=== PATIENT | female | born 1960 | race African-American/Black ===

== ENCOUNTER 2017-02-02 22:52 | Emergency (ER) | payer BC ==
[2017-02-02 23:16] VITALS: BMI 29.2
[2017-02-02 23:22] VITALS: TEMP 97.9
[2017-02-02] MEDS ORDERED: ASPIRIN 81 MG CHEWABLE TABLETS PO ONE (23:28)
--- NOTE | 2017-02-02 23:35 | PDOC ---
Attending Attestation - Resident Resident Name: TimothyrlAkbar - ED Attending Attestation I have performed the following: I have examined & evaluated the patient, The case was reviewed & discussed with the resident, I agree w/resident's findings & plan, Exceptions are as noted - HPI HPI: 02/03/17 00:27 56y F hx of htn, presents with 'feeling strange', alitlte bit nauseus, when she woke up around 10:30pm. The pt denies any headache, chest pain, palpitations, sob, cough, lightheadedness, n/v, diaprehosis, leg swelling, orthopnea. Pt notes the last time she felt this way, in march, she was admitted and had a cath, that was negative. pt states she is fairly active and has never had any exertional sypmtoms. Pt currently feels well and is asypmtomatic. Patient also endorses polyuria starting today without any dysuria. GENERAL: The patient is awake, alert, and fully oriented, Nontoxic - in no acute distress. HEAD: Normocephalic, atraumatic. EYES: extraocular movements intact, sclera anicteric, conjunctiva clear. ENT: Normal voice, Moist mucous membranes. NECK: Normal range of motion, supple LUNGS: Breath sounds equal, clear to auscultation bilaterally. No wheezes, no rhonchi, no rales. HEART: Regular rate and rhythm, normal S1 and S2 without murmur, rub or gallop. ABDOMEN: Soft, nontender, normoactive bowel sounds. No guarding, no rebound. . No CVA tenderness EXTREMITIES: Normal range of motion, no edema. No clubbing or cyanosis. No cords, erythema, or tenderness. NEUROLOGICAL: No facial assymetry, Normal speech, PSYCH: Normal mood, normal affect. SKIN: Warm, Dry, normal turgor, Although highly atypical consider possible ACS Will obtain troponin 2 the patient was given aspirin We'll obtain blood work to rule out anemia, metabolic derangements Will obtain UA to rule out UTI Will reassess 02/03/17 02:57 - Physicial Exam PE: 02/03/17 16:19 see above - Medical Decision Making 02/03/17 16:19 see above Heart Score/ECG Review - ECG Impressions Comment:: 02/03/17 02:53 Twelve-lead EKG was performed and reviewed by me. There is normal sinus rhythm with a normal rate. Rate of 71 The axis is normal. Incomplete right bundle-branch block There are no ST or T wave abnormalities.
[2017-02-02 23:50] LABS: BASOPHIL 2.5 % (0-2.0); EOSINOPHIL 2.2 % (0-4.5); MCH 27.3 pg (25.7-33.7); MCHC 32.8 g/dl (32.0-36.0); MEAN CELL VOLUME 83.1 fl (80-96); MEAN PLT VOLUME 9.3 fl (7.5-11.1); PLATELET COUNT 231 K/MM3 (134-434); RDW 13.4 % (11.6-15.6); WHITE BLOOD COUNT 3.5 K/mm3 (4.0-10.0)
[2017-02-02] MEDS ORDERED: ASPIRIN 81 MG CHEWABLE TABLETS ONE (23:51)
--- NOTE | 2017-02-02 23:52 | PDOC ---
History of Present Illness - General Chief Complaint: Blood Pressure Problem Stated Complaint: DIFFICULT BREATHING Time Seen by Provider: 02/02/17 23:12 History Source: Patient Exam Limitations: No Limitations - History of Present Illness Initial Comments: 02/02/17 23:44 Patient is a 56F with history of a positive trop with acute EKG changes and a negative cath (04/01) and HTN here today complaining of not feeling right. She denies chest pain, shortness of breath, abdominal pain, dizziness, weakness and lethargy. She had the same complaint during the above mentioned visit. She denies fevers, chills, nausea and vomiting. She states that her pressures were up despite not measuring her blood pressure. She reports taking her blood pressure medication regularly. Past History - Past Medical History Allergies/Adverse Reactions: Allergies Allergy/AdvReac Type Severity Reaction Status Date / Time No Known Drug Allergies Allergy Verified 02/02/17 23:09 Home Medications: Ambulatory Orders Amlodipine Besylate [Norvasc -] 5 mg PO DAILY 02/02/17 Valsartan [Diovan] 160 mg PO DAILY 02/02/17 Anemia: No Asthma: No Cancer: No Cardiac Disorders: No CVA: No COPD: No CHF: No Dementia: No Diabetes: No GI Disorders: No Disorders: No HTN: Yes Hypercholesterolemia: No Liver Disease: No Seizures: No Thyroid Disease: No - Surgical History Abdominal Surgery: No Appendectomy: No Cardiac Surgery: No Cholecystectomy: No Lung Surgery: No Neurologic Surgery: No Orthopedic Surgery: Yes (TIBIAL SX) - Psycho/Social/Smoking Cessation Hx Anxiety: Yes Suicidal Ideation: No Smoking Status: No Smoking History: Never smoked Have you smoked in the past 12 months: No Number of Cigarettes Smoked Daily: 0 If you are a former smoker, when did you quit?: 30 YRS AGO Information on smoking cessation initiated: No Hx Alcohol Use: No Drug/Substance Use Hx: No Substance Use Type: None Hx Substance Use Treatment: No Cardiac Specific PMH - Complaint Specific PMHX Angina: No Cardiac Arrhythmia: No Pacemaker: No Review of Systems - Review of Systems Comments:: 02/02/17 23:52 GENERAL/CONSTITUTIONAL: No fever or chills. No weakness. HEAD, EYES, EARS, NOSE AND THROAT: No change in vision. No ear pain or discharge. No sore throat. CARDIOVASCULAR: No chest pain or shortness of breath RESPIRATORY: No cough, wheezing, or hemoptysis. GASTROINTESTINAL: No nausea, vomiting, diarrhea or constipation. GENITOURINARY: No dysuria, frequency, or change in urination. SKIN: No rash NEUROLOGIC: No headache, vertigo, loss of consciousness, or change in strength/ sensation. ALLERGIC/IMMUNOLOGIC: No hives or skin allergy. *Physical Exam - Vital Signs Last Vital Signs Temp Pulse Resp BP Pulse Ox 97.9 F 61 16 144/81 100 02/02/17 23:10 02/03/17 05:54 02/03/17 05:54 02/03/17 05:54 02/03/17 05:54 - Physical Exam Comments: 02/02/17 23:53 GENERAL: Awake, alert, and fully oriented, in no acute distress HEAD: No signs of trauma, normocephalic, atraumatic EYES: PERRLA, EOMI, sclera anicteric, conjunctiva clear ENT: Auricles normal inspection, hearing grossly normal, nares patent, oropharynx clear without exudates. Moist mucosa NECK: Normal ROM, supple, no lymphadenopathy, JVD, or masses LUNGS: No distress, speaks full sentences, clear to auscultation bilaterally HEART: Regular rate and rhythm, normal S1 and S2, no murmurs, rubs or gallops, peripheral pulses normal and equal bilaterally. ABDOMEN: Soft, nontender, normoactive bowel sounds. No guarding, no rebound. No masses EXTREMITIES: Normal inspection, Normal range of motion, no edema. No clubbing or cyanosis. NEUROLOGICAL: Cranial nerves II through XII grossly intact. Normal speech, normal gait, no focal sensorimotor deficits SKIN: Warm, Dry, normal turgor, no rashes or lesions noted. ED Treatment Course - LABORATORY CBC & Chemistry Diagram: 02/02/17 23:44 02/02/17 23:44 - ADDITIONAL ORDERS Additional order review: Laboratory Results 02/03/17 02/03/17 02/02/17 04:22 00:59 23:44 INR Sodium 140 Potassium 3.8 Chloride 102 Carbon Dioxide 31 Anion Gap 7 L BUN 10 D Creatinine 0.8 Creat Clearance w eGFR > 60 Random Glucose 96 Calcium 9.1 Magnesium 2.0 Total Bilirubin 0.5 D AST 18 D ALT 24 Alkaline Phosphatase 113 D Creatine Kinase 166 185 Creatine Kinase Index 0.6 0.6 CK-MB (CK-2) 1.089 1.239 Troponin I 0.02 < 0.02 Total Protein 7.9 Albumin 4.0 Urine Color Straw Urine Appearance Clear Urine pH 7.0 Urine Protein 2+ H Urine Glucose (UA) Negative Urine Ketones Negative Urine Blood Negative Urine Nitrite Negative Urine Bilirubin Negative Urine Urobilinogen Negative Ur Leukocyte Esterase Negative Urine RBC 1 Urine WBC 1 Ur Epithelial Cells Rare Hyaline Casts 1 Urine Mucus Rare 02/02/17 23:44 INR 1.04 Sodium Potassium Chloride Carbon Dioxide Anion Gap BUN Creatinine Creat Clearance w eGFR Random Glucose Calcium Magnesium Total Bilirubin AST ALT Alkaline Phosphatase Creatine Kinase Creatine Kinase Index CK-MB (CK-2) Troponin I Total Protein Albumin Urine Color Urine Appearance Urine pH Urine Protein Urine Glucose (UA) Urine Ketones Urine Blood Urine Nitrite Urine Bilirubin Urine Urobilinogen Ur Leukocyte Esterase Urine RBC Urine WBC Ur Epithelial Cells Hyaline Casts Urine Mucus 02/02/17 23:44 RBC 4.62 MCV 83.1 MCHC 32.8 RDW 13.4 MPV 9.3 Neutrophils % 47.0 Lymphocytes % 33.5 Monocytes % 14.8 H Eosinophils % 2.2 Basophils % 2.5 H - RADIOLOGY Radiology Studies Ordered: Category Date Time Status CHEST PA & LAT [RAD] Stat Radiology 02/03/17 01:34 Taken - Medications Given in the ED: ED Medications Discontinued Medications Generic Name Dose Route Start Last Admin Trade Name Baldoq PRN Reason Stop Dose Admin Aspirin 162 mg 02/02/17 23:28 02/02/17 23:52 Asa - PO 02/02/17 23:29 162 mg ONCE ONE Administration Medical Decision Making - Medical Decision Making 02/02/17 23:58 Patient is a 56F with history of elevated trop and acute EKG changes with an abnormal presentation in 04/01 here today with the same complaint. Patient currently reports no symptoms other than an episode of not feeling right earlier. Given prior visit, will do ACS work up. 02/03/17 06:49 CBC normal, CMP normal, Trop neg x2. Patient instructed to setup appointment with PCP today. Discharged to home with return precautions. Patient verbalized understanding. *DC/Admit/Observation/Transfer Diagnosis at time of Disposition: Blood pressure alteration - Discharge Dispostion Disposition: HOME Condition at time of disposition: Good Admit: No - Referrals Referrals: Buddy Arnold MD [Primary Care Provider] - - Patient Instructions Printed Discharge Instructions: DI for High Blood Pressure - Attestations Physician Attestion: 02/03/17 05:36 I, Dr. Akbar Hurd, attest that this document has been prepared under my direction and personally reviewed by me in its entirety. I further attest, that it accurately reflects all work, treatment, procedures and medical decision -making performed by me.
[2017-02-03 00:05] LABS: INR 1.04 (0.82-1.09); PROTHROMBIN TIME (PATIENT) 11.5 SEC (9.98-11.88)
[2017-02-03 00:59] LABS: ANION GAP 7 (8-16); CALCIUM 9.1 mg/dL (8.5-10.1); CO2 31 mmol/L (21-32); CREATININE 0.8 mg/dL (0.55-1.02); GLUCOSE,RANDOM 96 mg/dL (74-106); SGOT/AST 18 U/L (15-37); SGPT/ALT 24 U/L (12-78)
[2017-02-03 01:04] LABS: ALK PHOS 113 U/L (45-117); BILIRUBIN,TOTAL 0.5 mg/dL (0.2-1.0); CPK 185 IU/L (26-192); TOT PROT 7.9 g/dl (6.4-8.2); TROPONIN I < 0.02 ng/ml (0.00-0.05)
[2017-02-03 01:06] LABS: URINE APPEARANCE CLEAR; URINE BILIRUBIN NEGATIVE (NEGATIVE); URINE BLOOD NEGATIVE (NEGATIVE); URINE COLOR STRAW; URINE GLUCOSE (UA) NEGATIVE (NEGATIVE); URINE KETONE NEGATIVE (NEGATIVE); URINE LEUK ESTERASE NEGATIVE (NEGATIVE); URINE NITRITE NEGATIVE (NEGATIVE); URINE UROBILINOGEN NEGATIVE mg/dL (0.2-1.0)
[2017-02-03 01:18] LABS: URINE PROTEIN 2+ (NEGATIVE)
[2017-02-03 01:33] LABS: URINE HYALINE CAST 1 /lpf; URINE MUCUS RARE; URINE RBC 1 /hpf (0-3); URINE WBC 1 /hpf (3-5)
[2017-02-03 05:03] LABS: TROPONIN I 0.02 ng/ml (0.00-0.05)
[2017-02-03 05:55] VITALS: BP 144/81; PULSE 61
--- NOTE | 2017-02-03 12:50 | EKG ---
Test Reason : Blood Pressure : / mmHG Vent. Rate : 071 BPM Atrial Rate : 071 BPM P-R Int : 200 ms QRS Dur : 116 ms QT Int : 394 ms P-R-T Axes : 056 -01 063 degrees QTc Int : 428 ms NORMAL SINUS RHYTHM INCOMPLETE RIGHT BUNDLE BRANCH BLOCK BORDERLINE ECG WHEN COMPARED WITH ECG OF 05-APR-2016 07:46, INCOMPLETE RIGHT BUNDLE BRANCH BLOCK IS NOW PRESENT Confirmed by KRISTIE RIVERA, EDMOND ([id number]) on 02/03/2017 12:49:49 PM Referred By: Confirmed By:EDMOND FLOWERS MD
== END 2017-02-03 05:56 | disposition home or self-care (01) ==
LOC: JER 22:52
DX: I10 Essential (primary) hypertension (principal)
CPT/HCPCS: 36415; 71020-TC; 80053; 81003; 81015; 82553; 83735; 84484; 85025; 85610; 93005; 93010; 99282-25

== ENCOUNTER 2018-05-31 16:20 | Emergency (ER) | payer BC ==
[2018-05-31 16:33] VITALS: BP 125/48; PULSE 65; TEMP 98.6; BMI 29.3
--- NOTE | 2018-05-31 16:51 | PDOC ---
History of Present Illness - General Chief Complaint: Wound Stated Complaint: FOOT PAIN (INFECTION) Time Seen by Provider: 05/31/18 16:51 - History of Present Illness Initial Comments: 05/31/18 16:52 Ms. Zhang is a 57 yo female w/ pmh of HTN and HLD who presents for evaluation of left 5th toe pain. Patient reports she got a bunyon shaved down approximately 1 year ago and that her wound never fully healed. She has since had pain at site as well as draining of fluid/pus. 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 She denies any other symptoms at this time. The patient denies chest pain, shortness of breath, headache and dizziness. Denies fever, chills, nausea, vomit, diarrhea and constipation. Denies dysuria, frequency, urgency and hematuria. Past History - Past Medical History Allergies/Adverse Reactions: Allergies Allergy/AdvReac Type Severity Reaction Status Date / Time No Known Drug Allergies Allergy Verified 05/31/18 16:28 Home Medications: Ambulatory Orders Amlodipine Besylate [Norvasc -] 5 mg PO DAILY 02/02/17 Valsartan [Diovan] 160 mg PO DAILY 02/02/17 Cephalexin [Keflex] 500 mg PO QID #28 capsule 05/31/18 Sulfamethoxazole/Trimethoprim [Bactrim Ds -] 1 tab PO BID #14 tablet 05/31/18 Anemia: No Asthma: No Cancer: No Cardiac Disorders: No CVA: No COPD: No CHF: No Dementia: No Diabetes: No GI Disorders: No Disorders: No HTN: Yes Hypercholesterolemia: No Liver Disease: No Seizures: No Thyroid Disease: No - Surgical History Abdominal Surgery: No Appendectomy: No Cardiac Surgery: No Cholecystectomy: No Lung Surgery: No Neurologic Surgery: No Orthopedic Surgery: Yes (TIBIAL SX) - Suicide/Smoking/Psychosocial Hx Smoking Status: No Smoking History: Never smoked Have you smoked in the past 12 months: No Number of Cigarettes Smoked Daily: 0 If you are a former smoker, when did you quit?: 30 YRS AGO Hx Alcohol Use: No Drug/Substance Use Hx: No Substance Use Type: None Hx Substance Use Treatment: No Review of Systems - Review of Systems Comments:: 05/31/18 16:52 GENERAL/CONSTITUTIONAL: No fever or chills. No weakness. HEAD, EYES, EARS, NOSE AND THROAT: No change in vision. No ear pain or discharge. No sore throat. CARDIOVASCULAR: No chest pain or shortness of breath RESPIRATORY: No cough, wheezing, or hemoptysis. GASTROINTESTINAL: No nausea, vomiting, diarrhea or constipation. GENITOURINARY: No dysuria, frequency, or change in urination. MUSCULOSKELETAL: +Left 5th toe pain as described. No joint or muscle swelling or pain. No neck or back pain. SKIN: No rash NEUROLOGIC: No headache, vertigo, loss of consciousness, or change in strength/ sensation. ENDOCRINE: No increased thirst. No abnormal weight change HEMATOLOGIC/LYMPHATIC: No anemia, easy bleeding, or history of blood clots. ALLERGIC/IMMUNOLOGIC: No hives or skin allergy. *Physical Exam - Vital Signs Last Vital Signs Temp Pulse Resp BP Pulse Ox 98.6 F 65 19 125/48 L 100 05/31/18 16:28 05/31/18 16:28 05/31/18 16:28 05/31/18 16:28 05/31/18 16:28 - Physical Exam Comments: 05/31/18 16:53 GENERAL: Awake, alert, and fully oriented, in no acute distress HEAD: No signs of trauma, normocephalic, atraumatic EYES: PERRLA, EOMI, sclera anicteric, conjunctiva clear ENT: Auricles normal inspection, hearing grossly normal, nares patent, oropharynx clear without exudates. Moist mucosa NECK: Normal ROM, supple, no lymphadenopathy, JVD, or masses LUNGS: No distress, speaks full sentences, clear to auscultation bilaterally HEART: Regular rate and rhythm, normal S1 and S2, no murmurs, rubs or gallops, peripheral pulses normal and equal bilaterally. ABDOMEN: Soft, nontender, normoactive bowel sounds. No guarding, no rebound. No masses EXTREMITIES: +Non-healing bunyon lesion c/w history noted to 5th DIP on LLE. Otherwise normal inspection, normal range of motion, no edema. No clubbing or cyanosis. NEUROLOGICAL: Cranial nerves II through XII grossly intact. Normal speech, normal gait, no focal sensorimotor deficits SKIN: Warm, Dry, normal turgor, no rashes or lesions noted. Moderate Sedation - Procedure Monitoring Vital Signs: Procedure Monitoring Vital Signs Temperature 98.6 F 05/31/18 16:28 Pulse Rate 65 05/31/18 16:28 Respiratory Rate 19 05/31/18 16:28 Blood Pressure 125/48 L 05/31/18 16:28 O2 Sat by Pulse Oximetry (%) 100 05/31/18 16:28 ED Treatment Course - LABORATORY CBC & Chemistry Diagram: 05/31/18 15:09 05/31/18 18:00 Medical Decision Making - Medical Decision Making 05/31/18 18:22 Ms. Zhang is a 57 yo female w/ pmh as described who presents for symptoms concerning for soft tissue infection vs. osteo vs. chronic wound. Evaluation started with infectious labs, blood cultures, and XR. 05/31/18 18:49 Patient labs grossly wnl as below. Patient currently pending XR read. Patient signed out to Dr. Nichols for further evaluation. Laboratory Results - last 24 hr 05/31/18 05/31/18 05/31/18 15:09 15:09 18:00 WBC 4.2 RBC 4.60 Hgb 12.7 Hct 38.3 MCV 83.3 MCH 27.6 MCHC 33.2 RDW 12.7 Plt Count 243 MPV 9.1 Absolute Neuts (auto) 2.2 Neutrophils % 52.1 Lymphocytes % 30.3 Monocytes % 13.5 H Eosinophils % 1.8 Basophils % 2.3 H Nucleated RBC % 0 Sodium Cancelled 138 Potassium Cancelled 3.9 Chloride Cancelled 104 Carbon Dioxide Cancelled 26 Anion Gap Cancelled 8 BUN Cancelled 15 Creatinine Cancelled 0.8 Creat Clearance w eGFR Cancelled > 60 Random Glucose Cancelled 94 Calcium Cancelled 9.1 Total Bilirubin Cancelled 0.4 AST Cancelled 23 ALT Cancelled 22 Alkaline Phosphatase Cancelled 79 Total Protein Cancelled 7.4 Albumin Cancelled 3.6 *DC/Admit/Observation/Transfer Diagnosis at time of Disposition: Foot pain, left - Prescriptions Prescriptions: Cephalexin [Keflex] 500 mg PO QID #28 capsule Sulfamethoxazole/Trimethoprim [Bactrim Ds -] 1 tab PO BID #14 tablet - Referrals Referrals: Buddy Arnold MD [Primary Care Provider] - - Patient Instructions Printed Discharge Instructions: DI for Wound Infection Additional Instructions: You were evaluated today in the ER for your foot infection. We evaluated you with Xray and labs. We started you on antibiotics and recommended you follow-up on Saturday with your restaurant maintenance technician. A proscription for antibiotics were sent to your pharmacy; please take all medications as proscribed. Return to ER if any fever, chills, increase in pain, difficulty being seen by restaurant maintenance technician, or other concerning symptoms. - Post Discharge Activity
--- NOTE | 2018-05-31 17:03 | PDOC ---
Attending Attestation - HPI HPI: 05/31/18 17:21 The patient is a 57 year old female, with a significant PMH of hypertension, hyperlipidemia, who presents to the emergency department with left 5th toe pain. The patient reports she had a bunion removed approx 1 year ago and has had blood and pus draining from the area intermittently since. The patient denies any recent fever, chills, nausea, vomit, diarrhea and constipation. The patient denies chest pain, shortness of breath, headache and dizziness. Denies dysuria, frequency, urgency and hematuria. Allergies: NKA Documentation prepared by Ildefosno Hernandez, acting as medical insurance verifier for Anita Edmond MD. <Ildefonso Hernandez - Last Filed: 05/31/18 17:21> - Resident Resident Name: Edouard Cooper - ED Attending Attestation I have performed the following: I have examined & evaluated the patient, The case was reviewed & discussed with the resident, I agree w/resident's findings & plan, Exceptions are as noted - Physicial Exam PE: GENERAL: Awake, alert, and fully oriented, in no acute distress HEAD: No signs of trauma EYES: PERRLA, EOMI, sclera anicteric, conjunctiva clear ENT: Auricles normal inspection, hearing grossly normal, nares patent, oropharynx clear without exudates. Moist mucosa NECK: Normal ROM, supple, no lymphadenopathy, JVD, or masses LUNGS: Breath sounds equal, clear to auscultation bilaterally. No wheezes, and no crackles HEART: Regular rate and rhythm, normal S1 and S2, no murmurs, rubs or gallops ABDOMEN: Soft, nontender, normoactive bowel sounds. No guarding, no rebound. No masses EXTREMITIES: L 5th toe with moderate nonpitting edema, tenderness to the lateral portion of the toe. +Hyperpigmented calloused skin, no active drainage. +Tenderness. No erythema. Remainder of extremities with normal range of motion, no edema. No clubbing or cyanosis. No cords, erythema, or tenderness NEUROLOGICAL: Cranial nerves II through XII grossly intact. Normal speech, normal gait SKIN: Warm, Dry, normal turgor, no rashes or lesions noted. - Medical Decision Making The toe is not cellulitic in appearance and there is no drainage at present. However, there is devitalized skin in the area where there was previous drainage. This will need to be debrided by a pharmacists. Will await XR results to determine if we admit or not. Pt has a pharmacists and can f/u this week. <Anita Edmond - Last Filed: 06/01/18 07:43>
[2018-05-31 17:36] LABS: BASO % 2.3 % (0-2.0); EOS % 1.8 % (0-4.5); HEMATOCRIT 38.3 % (32.4-45.2); HEMOGLOBIN 12.7 GM/dL (10.7-15.3); LYMPH % 30.3 % (8-40); MCH 27.6 pg (25.7-33.7); MCHC 33.2 g/dl (32.0-36.0); MEAN CELL VOLUME 83.3 fl (80-96); MEAN PLT VOLUME 9.1 fl (7.5-11.1); MONO % 13.5 % (3.8-10.2); NEUT % 52.1 % (42.8-82.8); PLATELET COUNT 243 K/MM3 (134-434); RDW 12.7 % (11.6-15.6); WHITE BLOOD COUNT 4.2 K/mm3 (4.0-10.0)
[2018-05-31 18:48] LABS: ALBUMIN 3.6 g/dl (3.4-5.0); ALK PHOS 79 U/L (45-117); ANION GAP 8 MMOL/L (8-16); BILIRUBIN,TOTAL 0.4 mg/dL (0.2-1); BLOOD UREA NITROGEN 15 mg/dL (7-18); CALCIUM 9.1 mg/dL (8.5-10.1); CHLORIDE 104 mmol/L (98-107); CO2 26 mmol/L (21-32); CREATININE 0.8 mg/dL (0.55-1.3); GLUCOSE,RANDOM 94 mg/dL (74-106); POTASSIUM 3.9 mmol/L (3.5-5.1); SGOT/AST 23 U/L (15-37); SGPT/ALT 22 U/L (13-61); SODIUM 138 mmol/L (136-145); TOT PROT 7.4 g/dl (6.4-8.2)
[2018-05-31] MEDS ORDERED: CEFTRIAXONE 1,000 MG in DEXTROSE 5%-WATER - 50 ML IVPB ONE (19:25)
--- NOTE | 2018-05-31 19:25 | PDOC ---
*Physical Exam - Vital Signs Last Vital Signs Temp Pulse Resp BP Pulse Ox 98.6 F 65 19 125/48 L 100 05/31/18 16:28 05/31/18 16:28 05/31/18 16:28 05/31/18 16:28 05/31/18 16:28 ED Treatment Course - LABORATORY CBC & Chemistry Diagram: 05/31/18 15:09 05/31/18 18:00 - ADDITIONAL ORDERS Additional order review: Laboratory Results 05/31/18 05/31/18 05/31/18 18:00 18:00 15:09 Sodium 138 Cancelled Potassium 3.9 Cancelled Chloride 104 Cancelled Carbon Dioxide 26 Cancelled Anion Gap 8 Cancelled BUN 15 Cancelled Creatinine 0.8 Cancelled Creat Clearance w eGFR > 60 Cancelled Random Glucose 94 Cancelled Calcium 9.1 Cancelled Total Bilirubin 0.4 Cancelled AST 23 Cancelled ALT 22 Cancelled Alkaline Phosphatase 79 Cancelled C-Reactive Protein < 0.3 Total Protein 7.4 Cancelled Albumin 3.6 Cancelled 05/31/18 15:09 RBC 4.60 MCV 83.3 MCHC 33.2 RDW 12.7 MPV 9.1 Neutrophils % 52.1 Lymphocytes % 30.3 Monocytes % 13.5 H Eosinophils % 1.8 Basophils % 2.3 H Medical Decision Making - Medical Decision Making I have assumed care of the patient from Dr. Cooper, who has discussed the clinical presentation, work-up, and ED course thus far. I have reviewed the patients medical record and ED course and agree with all aspects of care thus far. ESR & CRP neg CXR w/ evidence of inflammatory process and likely not infectious bone-pathology Plan for D/C w/ PO abx which were sent to the pharmacy Discharge instructions and return precautions given Patient in agreement and verbalized understanding Dispo: home 05/31/18 19:45 *DC/Admit/Observation/Transfer Diagnosis at time of Disposition: Foot pain, left - Discharge Dispostion Disposition: HOME Condition at time of disposition: Stable Decision to Admit order: No - Prescriptions Prescriptions: Cephalexin [Keflex] 500 mg PO QID #28 capsule Sulfamethoxazole/Trimethoprim [Bactrim Ds -] 1 tab PO BID #14 tablet - Referrals Referrals: Buddy Arnold MD [Primary Care Provider] - Kade Walters MD [Staff Physician] - - Patient Instructions Printed Discharge Instructions: DI for Wound Infection Additional Instructions: You were evaluated today in the ER for your foot infection. We evaluated you with Xray and labs. We started you on antibiotics and recommended you follow-up on Saturday with your vice president biostatistics. A proscription for antibiotics were sent to your pharmacy; please take all medications as proscribed. Return to ER if any fever, chills, increase in pain, difficulty being seen by vice president biostatistics, or other concerning symptoms. - Post Discharge Activity
--- NOTE | 2018-05-31 19:26 | PDOC ---
*Physical Exam - Vital Signs Last Vital Signs Temp Pulse Resp BP Pulse Ox 98.6 F 65 19 125/48 L 100 05/31/18 16:28 05/31/18 16:28 05/31/18 16:28 05/31/18 16:28 05/31/18 16:28 ED Treatment Course - LABORATORY CBC & Chemistry Diagram: 05/31/18 15:09 05/31/18 18:00 - ADDITIONAL ORDERS Additional order review: Laboratory Results 05/31/18 05/31/18 05/31/18 18:00 18:00 15:09 Sodium 138 Cancelled Potassium 3.9 Cancelled Chloride 104 Cancelled Carbon Dioxide 26 Cancelled Anion Gap 8 Cancelled BUN 15 Cancelled Creatinine 0.8 Cancelled Creat Clearance w eGFR > 60 Cancelled Random Glucose 94 Cancelled Calcium 9.1 Cancelled Total Bilirubin 0.4 Cancelled AST 23 Cancelled ALT 22 Cancelled Alkaline Phosphatase 79 Cancelled C-Reactive Protein < 0.3 Total Protein 7.4 Cancelled Albumin 3.6 Cancelled 05/31/18 15:09 RBC 4.60 MCV 83.3 MCHC 33.2 RDW 12.7 MPV 9.1 Neutrophils % 52.1 Lymphocytes % 30.3 Monocytes % 13.5 H Eosinophils % 1.8 Basophils % 2.3 H Medical Decision Making - Medical Decision Making 05/31/18 19:25 I picked up patient on signout; awaiting c-Reactive protein (which just returned normal) and sed rate -still pending. XR foot shows: Patient Name: LIZ DUNLAP Exam: 3 views left sided toes. Clinical indication:Swelling and pain to left fifth toe. Findings: There is disruption of the left fifth PIP joint with weak cuplike erosive change involving the head of the proximal phalanx and rounding of the base of the left fifth middle phalanx. The findings suggest a pencil in cup type deformity as seen classically in psoriatic arthritis. Other inflammatory arthritides should be considered as well. The remainder of the joints are within normal limits. The remainder the visualized bony structures are unremarkable. Impression: Destructive changes involving the left fifth PIP joint the appearance of which favors an inflammatory arthritides such as psoriatic arthritis over osteomyelitis. Clinical correlation is recommended. 05/31/18 20:22 sed rate is 12; pt will be discharged with abx for soft tissue infection. Follow with podiatry *DC/Admit/Observation/Transfer Diagnosis at time of Disposition: Foot pain, left - Discharge Dispostion Disposition: HOME Condition at time of disposition: Stable - Prescriptions Prescriptions: Cephalexin [Keflex] 500 mg PO QID #28 capsule Sulfamethoxazole/Trimethoprim [Bactrim Ds -] 1 tab PO BID #14 tablet - Referrals Referrals: Buddy Arnold MD [Primary Care Provider] - - Patient Instructions Printed Discharge Instructions: DI for Wound Infection Additional Instructions: You were evaluated today in the ER for your foot infection. We evaluated you with Xray and labs. We started you on antibiotics and recommended you follow-up on Saturday with your soap boiler. A proscription for antibiotics were sent to your pharmacy; please take all medications as proscribed. Return to ER if any fever, chills, increase in pain, difficulty being seen by soap boiler, or other concerning symptoms. - Post Discharge Activity
[2018-05-31] MEDS ORDERED: CEFTRIAXONE 1 GM/50 ML BAG ONE (19:49)
== END 2018-05-31 20:46 | disposition home or self-care (01) ==
LOC: JER 16:20
DX: M79.672 Pain in left foot (principal); I10 Essential (primary) hypertension; E78.5 Hyperlipidemia, unspecified; Z87.891 Personal history of nicotine dependence
CPT/HCPCS: 36415; 73660-TC-LT-FY; 80053; 85025; 85651; 86140; 87040; 99282-25

== ENCOUNTER 2018-12-03 16:44 | Emergency (ER) | payer OTHER ==
[2018-12-03 16:49] VITALS: TEMP 98.4; BMI 32.6
--- NOTE | 2018-12-03 17:36 | PDOC ---
History of Present Illness - General Chief Complaint: Blood Pressure Problem Stated Complaint: elevated blood pressure Time Seen by Provider: 12/03/18 17:14 - History of Present Illness Initial Comments: 12/03/18 17:36 The patient is a 57 year old female with a history of HTN, HLD who presents for evaluation of elevated blood pressure. The patient notes that she was on the bus today when she felt that her blood pressure was elevated as well as some lightheadedness prompting her presentation to the ED for further evaluation. She states that she feels her blood pressure becomes elevated when she is hungry and feels that is what caused her symptoms today. She states that she took her blood pressure medication 5mg Norvasc while on the bus prior to presentation to the ED. She states that on presentation to the ED, she is asymptomatic and feels much improved. She otherwise denies headache, vision changes, SOB, chest pain, nausea, vomiting, abdominal pain, or changes with urination or bowel movements. Past History - Past Medical History Allergies/Adverse Reactions: Allergies Allergy/AdvReac Type Severity Reaction Status Date / Time No Known Drug Allergies Allergy Verified 12/03/18 16:50 Home Medications: Ambulatory Orders Atorvastatin Ca [Lipitor] 20 mg PO DAILY 12/03/18 Triamterene/Hydrochlorothiazid [Triamterene-Hctz 37.5-25 mg Cp] 1 each PO DAILY 12/03/18 Anemia: No Asthma: No Cancer: No Cardiac Disorders: No CVA: No COPD: No CHF: No Dementia: No Diabetes: No GI Disorders: No Disorders: No HTN: Yes Hypercholesterolemia: Yes Liver Disease: No Seizures: No Thyroid Disease: No - Surgical History Abdominal Surgery: No Appendectomy: No Cardiac Surgery: No Cholecystectomy: No Lung Surgery: No Neurologic Surgery: No Orthopedic Surgery: Yes (TIBIAL SX) - Suicide/Smoking/Psychosocial Hx Smoking Status: No Smoking History: Never smoked Have you smoked in the past 12 months: No Number of Cigarettes Smoked Daily: 0 If you are a former smoker, when did you quit?: 30 YRS AGO Hx Alcohol Use: No Drug/Substance Use Hx: No Substance Use Type: None Hx Substance Use Treatment: No Review of Systems - Review of Systems Comments:: 12/03/18 17:39 Constitutional: No fevers, chills, fatigue, malaise HEENT: No Rhinorrhea, nasal congestion, visual changes Cardiovascular: No chest pain, syncope, palpitations, Respiratory: No Cough, SOB, Hemoptysis, Gastrointestinal: No Abdominal pain, Nausea, Vomiting, Constipation, Diarrhea, Melena Genitourinary: No Dysuria, Frequency, Urgency, Hesitancy, Hematuria, Flank pain Musculoskeletal: No Myalgia, arthralgia Skin: No rashes, itching, bruising, pallor Neurologic: No Headache, Dizziness, Numbness, Weakness, or Tingling Psychiatric: No Hallucinations. No SI or HI *Physical Exam - Vital Signs Last Vital Signs Temp Pulse Resp BP Pulse Ox 98.4 F 90 18 163/66 100 12/03/18 16:47 12/03/18 16:47 12/03/18 16:47 12/03/18 16:47 12/03/18 16:47 - Physical Exam Comments: 12/03/18 17:40 General Appearance: Nourished. No Apparent Distress HEENT: No Pharyngeal Erythema, Tonsillar Exudate, Tonsillar Erythema Neck: No Cervical Lymphadenopathy Respiratory/Chest: Lungs Clear, Normal Breath Sounds. No Crackles, Rales, Rhonchi, Wheezing Cardiovascular: Regular Rhythm, Regular Rate. No Murmur, Gallops, Rubs Gastrointestinal/Abdominal: Normal Bowel Sounds, Soft. No Guarding, Rebound, Tenderness Musculoskeletal: No CVA Tenderness Extremity: Normal Capillary Refill Integumentary: Normal Color, Dry, Warm Neurologic: Fully Oriented, Alert, Normal Mood/Affect, Normal Response, Medical Decision Making - Medical Decision Making 12/03/18 17:41 The patient is a 57 year old female with a history of HTN, HLD who presents for evaluation of elevated blood pressure. The patient appears clinically well on exam here in the ED and is currently asymptomatic. Given her history and physical exam, we do not believe further work up or intervention is needed at this time. The patient notes that she has schedule follow up with cardiology tomorrow. We are comfortable discharging the patient home in stable condition with close cardiology follow up. Patient made aware of impression and plan, return precautions discussed including but not limited to worsening pain or symptoms, fevers, or signs of infection, chest pain, respiratory distress, inability to tolerate oral intake, dehydration, syncope, or neurologic changes. The patient is to follow up with PMD as recommended within 1 week, follow up information provided and the patient will call for an appointment. The patient is to take medications as instructed for duration of time and continue with supportive care, avoid triggers and precipitants. Patient is safe for outpatient follow-up. *DC/Admit/Observation/Transfer Diagnosis at time of Disposition: Elevated blood pressure - Discharge Dispostion Disposition: HOME Condition at time of disposition: Stable - Referrals Referrals: Buddy Arnold MD [Primary Care Provider] - - Patient Instructions Printed Discharge Instructions: DI for High Blood Pressure Additional Instructions: 1) Please follow-up with your primary care doctor in the next 2-3 days. Please call tomorrow to schedule a follow up appointment. If you cannot follow up with your doctor within 1 week please return to the Emergency Department for any urgent issues. 2) Please keep your follow up appointment with your Seafood Team Member tomorrow to discuss further management of your blood pressure. 3) If you have any worsening of symptoms or any other concerns please return to the ER immediately. Return if worsening symptoms including fevers, headache, vomiting, visual or hearing disturbances, abdominal pain, chest pain, shortness of breath, syncope, dehydration, inability to take things by mouth/vomiting, altered mental status, or worsening concerning symptoms. 4) Please continue taking your home medications as directed. Side effects may include upset stomach, abdominal pain, vomiting, or diarrhea. Do not drink alcohol with your medications. - Post Discharge Activity Forms/Work/School Notes: Back to Work
[2018-12-03 17:52] VITALS: BP 155/81; PULSE 86
== END 2018-12-03 17:52 | disposition home or self-care (01) ==
LOC: FER 16:44
DX: I10 Essential (primary) hypertension (principal); E78.5 Hyperlipidemia, unspecified; E78.00 Pure hypercholesterolemia, unspecified
CPT/HCPCS: 99282-25

== ENCOUNTER 2019-02-18 19:21 | Emergency (ER) | payer OTHER ==
[2019-02-18 20:19] VITALS: BMI 31.4
--- NOTE | 2019-02-18 20:20 | PDOC ---
History of Present Illness - General Chief Complaint: Lightheaded Stated Complaint: HYPERTENSION History Source: Patient - History of Present Illness Initial Comments: 58 y/o/f with PMHx of HTN, HLD here for lightheadedness that occurred today at 1830. She states that she had a deli sandwich today which tasted salty to her, despite her asking the deli informatics educator to not put any salt on the sandwich. After she ate the sandwich she started to feel lightheaded and decided to come to the ER. She takes Triamterene-HCTZ 37.5mg once a day and today she took a second pill after she started to feel off. She feels better after arriving in the ED. She denies any headache, vision changes, CP, abd pain, N/V/D, cough, fever, or other symptoms. Her blood pressure at home is usually in the 120s/80s. PMHx: HTN, HLD SHx: hysterectomy - 1999 PCP: Dr. Clayton Lowry Hx: denies tobacco and alcohol use Past History - Past Medical History Allergies/Adverse Reactions: Allergies Allergy/AdvReac Type Severity Reaction Status Date / Time No Known Drug Allergies Allergy Verified 02/18/19 20:15 Home Medications: Ambulatory Orders Atorvastatin Ca [Lipitor] 20 mg PO DAILY 12/03/18 Triamterene/Hydrochlorothiazid [Triamterene-Hctz 37.5-25 mg Cp] 1 each PO DAILY 12/03/18 Anemia: No Asthma: No Cancer: No Cardiac Disorders: No CVA: No COPD: No CHF: No Dementia: No Diabetes: No GI Disorders: No Disorders: No HTN: Yes Hypercholesterolemia: Yes Liver Disease: No Seizures: No Thyroid Disease: No - Surgical History Abdominal Surgery: No Appendectomy: No Cardiac Surgery: No Cholecystectomy: No Lung Surgery: No Neurologic Surgery: No Orthopedic Surgery: Yes (TIBIAL SX) - Suicide/Smoking/Psychosocial Hx Smoking Status: No Smoking History: Never smoked Have you smoked in the past 12 months: No Number of Cigarettes Smoked Daily: 0 If you are a former smoker, when did you quit?: 30 YRS AGO Hx Alcohol Use: No Drug/Substance Use Hx: No Substance Use Type: None Hx Substance Use Treatment: No Review of Systems - Review of Systems Constitutional: No: Chills, Fever HEENTM: No: Blurred Vision, Double Vision, Nose Congestion Respiratory: No: Cough, Shortness of Breath Cardiac (ROS): Yes: Lightheadedness. No: Chest Pain ABD/GI: No: Diarrhea, Nausea, Vomiting, Abdominal cramping : No: Dysuria Musculoskeletal: No: Back Pain Integumentary: No: Rash Neurological: No: Headache, Numbness *Physical Exam - Vital Signs Last Vital Signs Temp Pulse Resp BP Pulse Ox 98.1 F 67 20 134/98 98 02/18/19 19:45 02/18/19 19:45 02/18/19 19:45 02/18/19 19:45 02/18/19 19:45 - Physical Exam General Appearance: Yes: Nourished, Appropriately Dressed HEENT: positive: EOMI. negative: Nasal Congestion Neck: positive: Supple. negative: Tender, Lymphadenopathy (R), Lymphadenopathy (L) Respiratory/Chest: positive: Normal Breath Sounds. negative: Accessory Muscle Use, Crackles, Rales, Rhonchi, Wheezing Cardiovascular: positive: Regular Rhythm, Regular Rate, S1, S2 Gastrointestinal/Abdominal: positive: Normal Bowel Sounds, Soft. negative: Tender Extremity: positive: Normal Capillary Refill. negative: Swelling Integumentary: positive: Normal Color Neurologic: positive: triage specialist II-XII NML intact, Fully Oriented, Alert, Motor Strength 5/5 Heart Score/ECG Review #1 ECG reviewed & interpreted by me at: 22:26 General ECG Interpretation: Sinus Rhythm 02/18/19 22:26 vent rate: 77bpm NH interval: 188ms QRS duration: 110ms QT/QTc: 384/434 P-R-T axes: 51 -25 54 normal sinus rhythm No acute ischemic changes ED Treatment Course - LABORATORY CBC & Chemistry Diagram: 02/18/19 21:04 02/18/19 21:04 Medical Decision Making - Medical Decision Making 02/18/19 21:10 58 y/o/f with PMHx of HTN, HLD here for lightheadedness that occurred today at 1830. Patient is on Triamterene/HCTZ 37.5mg once a day and took an extra pill at 1830 today when she started to feel off. Patient feels better after arriving in the ED. CBC, CMP, trops, EKG ordered. Patient has follow up with Dr. Arnold her PCP and a diabetes specialist. 02/18/19 22:27 Patient CBC grossly normal. CMP shows mild hypokalemia at 3.4. 40meq of Potassium ordered. Patient EKG shows normal sinus rhythm. No signs of acute ischemic changes. Patient feeling better. Will discharge home with follow up. *DC/Admit/Observation/Transfer Diagnosis at time of Disposition: Lightheadedness Hypertension Qualifiers: Hypertension type: unspecified Qualified Code(s): I10 - Essential (primary) hypertension - Discharge Dispostion Disposition: HOME Condition at time of disposition: Good - Referrals Referrals: Buddy Arnold MD [Primary Care Provider] - - Patient Instructions Printed Discharge Instructions: The DASH Diet, DI for High Blood Pressure Additional Instructions: If you have any worsening symptoms such as chest pain, shortness of breath, changes in vision, sever headache return to the ER. Follow up with you primary care doctor within the next few days. Follow up with your diabetes specialist within the next few days. - Post Discharge Activity
[2019-02-18 20:40] VITALS: TEMP 98.7
--- NOTE | 2019-02-18 21:04 | PDOC ---
Documentation entered by Heber Gregorio SCRIBE, acting as scribe for Betsy Mae DO. Betsy Mae DO: This documentation has been prepared by the Jg yung Xhesika, SCRIBE, under my direction and personally reviewed by me in its entirety. I confirm that the documentation accurately reflects all work, treatment, procedures, and medical decision making performed by me. Attending Attestation - Resident Resident Name: SharlaAdrienneamy Roman - ED Attending Attestation I have performed the following: I have examined & evaluated the patient, The case was reviewed & discussed with the resident, I agree w/resident's findings & plan, Exceptions are as noted - HPI HPI: 02/18/19 20:59 The patient is a 58 year old female with a significant PMH of HTN and HLD who presents to the emergency department for lightheadedness. The patient states she ate a salty sandwich from the [facility] at 6:30pm and shortly after she endorsed elevated blood pressure. Patient notes she usually takes 1 pill of Triamterene , however, today she took 2 after the onset of her symptoms. Patient states her baseline BP is 120/80. Pt was seen here in the ED 2 months ago for similar symptoms. Patient denies headache, vision changes, SOB, chest pain, fever, cough, nausea, vomiting, abdominal pain, or changes with urination or bowel movements. Allergies: NKDA - Physicial Exam PE: 02/18/19 21:00 GENERAL: Awake, alert, and fully oriented, in no acute distress HEAD: No signs of trauma EYES: PERRLA, EOMI, sclera anicteric, conjunctiva clear ENT: Auricles normal inspection, hearing grossly normal, nares patent, oropharynx clear without exudates. Moist mucosa NECK: Normal ROM, supple, no lymphadenopathy, JVD, or masses LUNGS: Breath sounds equal, clear to auscultation bilaterally. No wheezes, and no crackles HEART: Regular rate and rhythm, normal S1 and S2, no murmurs, rubs or gallops ABDOMEN: Soft, nontender, normoactive bowel sounds. No guarding, no rebound. No masses EXTREMITIES: Normal range of motion, no edema. No clubbing or cyanosis. No cords, erythema, or tenderness NEUROLOGICAL: Cranial nerves II through XII grossly intact. Normal speech, normal gait SKIN: Warm, Dry, normal turgor, no rashes or lesions noted. - Medical Decision Making 02/18/19 21:02 I, Dr. Betsy Mae, DO, attest that this document has been prepared under my direction and personally reviewed by me in its entirety. I further attest, that it accurately reflects all work, treatment, procedures and medical decision -making performed by me. a/p: 58yo female with hx of htn who ate a deli sandwich which tasted salty and then felt her pressure went up -felt dizzy, took an extra bp med and now feels much better -denies all symptoms -denies miranda, paresthesias, dizziness, cp.sob, no abd pain, no n/v/ -no dysuria -pt states she feels all symptoms resolved -will check basic labs and ekg -plan for most likely dc to home with pmd follow up for bp check 02/18/19 22:28 labs reviewed trop neg replaced potassium ekg nonacute pt feeling better and requesting to go home asymptomatic in the ED 02/18/19 22:29 pt stable for dc to home Heart Score/ECG Review - ECG Intrepretation Comment:: 02/18/19 22:28 sinus at 77, nl axis, nl interval, t wave flattening inferior leads and anterior leads, no acute st changes
[2019-02-18 21:24] LABS: BASO % 1.4 % (0-2.0); EOS % 0.7 % (0-4.5); HEMATOCRIT 41.8 % (32.4-45.2); HEMOGLOBIN 13.6 GM/dL (10.7-15.3); LYMPH % 12.1 % (8-40); MCH 26.8 pg (25.7-33.7); MCHC 32.4 g/dl (32.0-36.0); MEAN CELL VOLUME 82.7 fl (80-96); MEAN PLT VOLUME 8.7 fl (7.5-11.1); MONO % 8.9 % (3.8-10.2); NEUT % 76.9 % (42.8-82.8); PLATELET COUNT 295 K/MM3 (134-434); RBC 5.06 M/mm3 (3.60-5.2); RDW 13.3 % (11.6-15.6); WHITE BLOOD COUNT 6.3 K/mm3 (4.0-10.0)
[2019-02-18 21:45] LABS: ALBUMIN 4.2 g/dl (3.4-5.0); BILIRUBIN,TOTAL 0.4 mg/dL (0.2-1); CREATININE 1.1 mg/dL (0.55-1.3); POTASSIUM 3.4 mmol/L (3.5-5.1); TOT PROT 8.8 g/dl (6.4-8.2)
[2019-02-18] MEDS ORDERED: POTASSIUM CHLORIDE TABS 20 MEQ TABLET.ER (FP) PO ONE ×2 (22:01→22:36)
[2019-02-18 22:48] VITALS: BP 138/91; PULSE 86
--- NOTE | 2019-02-19 12:25 | EKG ---
Test Reason : Blood Pressure : / mmHG Vent. Rate : 077 BPM Atrial Rate : 077 BPM P-R Int : 188 ms QRS Dur : 110 ms QT Int : 384 ms P-R-T Axes : 051 -25 054 degrees QTc Int : 434 ms NORMAL SINUS RHYTHM NONSPECIFIC T WAVE ABNORMALITY ABNORMAL ECG WHEN COMPARED WITH ECG OF 02-FEB-2017 23:51, INCOMPLETE RIGHT BUNDLE BRANCH BLOCK IS NO LONGER PRESENT Confirmed by DAVE RIVERA, TISHA ([id number]) on 02/19/2019 12:24:57 PM Referred By: CORTEZ CUNHA Confirmed By:TISHA ACOSTA MD
== END 2019-02-18 22:49 | disposition home or self-care (01) ==
LOC: JER 19:21
DX: I10 Essential (primary) hypertension (principal); E87.6 Hypokalemia; E78.5 Hyperlipidemia, unspecified
CPT/HCPCS: 36415; 80053; 82550; 82553; 84484; 85025; 93005; 93010; 99283-25

== ENCOUNTER 2020-03-10 14:43 | Emergency (ER) | payer BC ==
[2020-03-10 15:05] VITALS: BP 152/86; PULSE 91; TEMP 98.5; BMI 31.1
--- NOTE | 2020-03-10 15:45 | PDOC ---
History of Present Illness - General Chief Complaint: Pain Stated Complaint: NECK PAIN Time Seen by Provider: 03/10/20 15:15 History Source: Patient Exam Limitations: No Limitations Past History - Travel History Traveled outside of the country in the last 30 days: No Close contact w/someone who was outside of country & ill: No - Medical History Allergies/Adverse Reactions: Allergies Allergy/AdvReac Type Severity Reaction Status Date / Time No Known Drug Allergies Allergy Verified 03/10/20 15:05 Home Medications: Ambulatory Orders Atorvastatin Ca [Lipitor] 20 mg PO DAILY 12/03/18 Triamterene/Hydrochlorothiazid [Triamterene-Hctz 37.5-25 mg Cp] 1 each PO DAILY 12/03/18 Methocarbamol [Robaxin -] 500 mg PO BID #14 tablet 03/10/20 Naproxen 500 mg PO BID #20 tablet 03/10/20 Anemia: No Asthma: No Cancer: No Cardiac Disorders: No CVA: No COPD: No CHF: No Dementia: No Diabetes: No GI Disorders: No Disorders: No HTN: Yes Hypercholesterolemia: Yes Liver Disease: No Seizures: No Thyroid Disease: No - Surgical History Abdominal Surgery: No Appendectomy: No Cardiac Surgery: No Cholecystectomy: No Lung Surgery: No Neurologic Surgery: No Orthopedic Surgery: Yes (TIBIAL SX) - Psycho-Social/Smoking History Smoking Status: No Smoking History: Never smoked Have you smoked in the past 12 months: No Number of Cigarettes Smoked Daily: 0 If you are a former smoker, when did you quit?: 30 YRS AGO Review of Systems - Review of Systems Able to Perform ROS?: Yes Comments:: 03/10/20 19:45 CONSTITUTIONAL: Absent: fever, chills, diaphoresis, generalized weakness, malaise, loss of appetite HEENT: Present: neck pain Absent: rhinorrhea, nasal congestion, throat pain, throat swelling, difficulty swallowing, mouth swelling, ear pain, eye pain, visual Changes CARDIOVASCULAR: Absent: chest pain, loss of consciousness, palpitations, irregular heart rate, peripheral edema RESPIRATORY: Absent: cough, shortness of breath, dyspnea with exertion, orthopnea, wheezing, stridor, hemoptysis GASTROINTESTINAL: Absent: abdominal pain, abdominal distension, nausea, vomiting, diarrhea, constipation, melena, hematochezia GENITOURINARY: Absent: dysuria, frequency, urgency, hesitancy, hematuria, flank pain, genital pain MUSCULOSKELETAL: Absent: myalgia, arthralgia, joint swelling SKIN: Absent: rash, itching, pallor HEMATOLOGIC/IMMUNOLOGIC: Absent: easy bleeding, easy bruising, lymphadenopathy, frequent infections ENDOCRINE: Absent: unexplained weight gain, unexplained weight loss, heat intolerance, cold intolerance NEUROLOGIC: Absent: headache, focal weakness or paresthesias, dizziness, unsteady gait, seizure, mental status changes, bladder or bowel incontinence PSYCHIATRIC: Absent: anxiety, depression, suicidal or homicidal ideation, hallucinations. Is the patient limited Thai proficient: No *Physical Exam - Vital Signs Last Vital Signs Temp Pulse Resp BP Pulse Ox 98.5 F 91 H 18 152/86 100 03/10/20 15:03 03/10/20 15:03 03/10/20 15:03 03/10/20 15:03 03/10/20 15:03 - Physical Exam 03/10/20 18:46 GENERAL: Well developed, well nourished. Awake and alert. No acute distress. HEENT: Normocephalic, atraumatic. PERRLA, EOMI. No conjunctival pallor. Sclera are non- icteric. Moist mucous membranes. Oropharynx is clear. NECK: Supple. Full ROM. No JVD. Carotid pulses 2+ and symmetric, without bruits. No lymphadenopathy. TTP of the b/l paraspinous muscles C5-C7. CARDIOVASCULAR: Regular rate and rhythm. No murmurs, rubs, or gallops. Distal pulses are 2+ and symmetric. PULMONARY: No evidence of respiratory distress. Lungs clear to auscultation bilaterally. No wheezing, rales or rhonchi. ABDOMINAL: Soft. Non-tender. Non-distended. No rebound or guarding. No organomegaly. Normoactive bowel sounds. MUSCULOSKELETAL Normal range of motion at all joints. No bony deformities or tenderness. No CVA tenderness. EXTREMITIES: No cyanosis. No clubbing. No edema. No calf tenderness. SKIN: Warm and dry. Normal capillary refill. No rashes. No jaundice. NEUROLOGICAL: Alert, awake, appropriate. Cranial nerves 2-12 intact. No deficits to light touch and temperature in face, upper extremities and lower extremities. No motor deficits in the in face, upper extremities and lower extremities. Normoreflexic in the upper and lower extremities. Normal speech. Toes are down-going bilaterally. Gait is normal without ataxia. PSYCHIATRIC: Cooperative. Good eye contact. Appropriate mood and affect. ED Treatment Course - LABORATORY CBC & Chemistry Diagram: 03/10/20 16:08 03/10/20 16:08 Medical Decision Making - Medical Decision Making 03/10/20 18:29 The patient is a 59 y/o F with PMH of HTN, presents to the ER with b/l neck pain. She states that it hurts more with movement. She notes that she has been feeling light headed due to the pain. She is not sure why she has neck pain. She also states that her neck has been "cracking" more than usual. Denies nausea, vomiting, headache, dizziness, fever, vomiting, A/P: Neck pain On exam pt has b/l paraspinous muscle spasm C5-C7. No midline tenderness. No meningismus, LAD. No JVD, No bruits b/l. Basic labs obtained. No abnormalities Tylenol given with relief of symptoms Wet read of x-ray shows multiple levels of arthritis and straightening; likely spasm Will treat with muscle relaxers and NSAIDS DC home with PCP follow up Return precautions given. Results were explained to the patient. Pt feels comfortable with discharge planning and will f/u with her PCP this week. All questions were answered. Discharge - Discharge Information Problems reviewed: Yes Clinical Impression/Diagnosis: Neck pain, Arthritis Condition: Stable Disposition: HOME - Admission No - Additional Discharge Information Prescriptions: Naproxen 500 mg PO BID #20 tablet Methocarbamol [Robaxin -] 500 mg PO BID #14 tablet - Follow up/Referral Referrals: Buddy Arnold MD [Primary Care Provider] - - Patient Discharge Instructions Patient Printed Discharge Instructions: DI for Neck Pain Additional Instructions: You were seen for your neck pain today. You have arthritis as seen on your x-ray. Please take the naproxen twice a day to help with the pain. You may take the Robaxin twice a day. This is a muscle relaxer. Do not drink or drive after taking this medication as it may make you drowsy. Your blood work was normal and did not show any abnormalities. You may apply heating pads to the area to help with the pain. Follow-up with your primary care tomorrow as already arranged. Return to the ER for worsening headache, chest pain, difficulty breathing or if you have any changes in your symptoms. - Post Discharge Activity Work/Back to School Note: Back to Work
[2020-03-10 16:21] LABS: BASO % 1.5 % (0-2.0); EOS % 0.4 % (0-4.5); HEMATOCRIT 39.5 % (32.4-45.2); HEMOGLOBIN 13.1 GM/dL (10.7-15.3); LYMPH % 13.1 % (8-40); MCH 27.6 pg (25.7-33.7); MEAN CELL VOLUME 83.7 fl (80-96); MEAN PLT VOLUME 9.4 fl (7.5-11.1); MONO % 7.3 % (3.8-10.2); NEUT % 77.7 % (42.8-82.8); PLATELET COUNT 220 K/MM3 (134-434); RBC 4.73 M/mm3 (3.60-5.2); RDW 12.8 % (11.6-15.6); WHITE BLOOD COUNT 5.7 K/mm3 (4.0-10.0)
[2020-03-10 16:44] LABS: ALBUMIN 4.9 g/dl (3.4-5.0); BILIRUBIN,TOTAL 0.4 mg/dL (0.2-1); BLOOD UREA NITROGEN 9.3 mg/dL (7-18); CALCIUM 9.6 mg/dL (8.5-10.1); CREATININE 0.9 mg/dL (0.55-1.3); POTASSIUM 3.2 mmol/L (3.5-5.1); TOT PROT 8.9 g/dl (6.4-8.2)
== END 2020-03-10 17:46 | disposition home or self-care (01) ==
LOC: JERFT 14:43
DX: M54.2 Cervicalgia (principal)
CPT/HCPCS: 36415; 72040-TC; 80053; 85025; 99284-25

== ENCOUNTER 2021-05-18 10:07 | Emergency (ER) | payer BC, OTHER ==
[2021-05-18 10:54] VITALS: BP 158/82; PULSE 85; TEMP 98.9; BMI 31.4
[2021-05-18] MEDS ORDERED: IBUPROFEN 600 MG TABLET (FP) PO ONE ×2 (11:47→11:59)
== END 2021-05-18 14:27 | disposition home or self-care (01) ==
LOC: JERFT 10:07
DX: S46.811A Strain of other muscles, fascia and tendons at shoulder and upper arm level, right arm, initial encounter (principal); V89.2XXA Person injured in unspecified motor-vehicle accident, traffic, initial encounter; Y92.9 Unspecified place or not applicable
CPT/HCPCS: 72040-TC; 99284-25

== ENCOUNTER 2021-08-10 17:37 | Emergency (ER) | payer OTHER, BC ==
[2021-08-10 17:59] VITALS: BP 165/97; PULSE 78; TEMP 97.9; BMI 32.2
[2021-08-10] MEDS ORDERED: METHOCARBAMOL 500 MG TABLET PO ONE (19:12)
[2021-08-10] MEDS ORDERED: LIDOCAINE 5% TOPICAL PATCH TP ONE (19:13)
[2021-08-10] MEDS ORDERED: LIDOCAINE 5% TOPICAL PATCH ONE (19:27)
[2021-08-10] MEDS ORDERED: METHOCARBAMOL 500 MG TABLET ONE (19:27)
[2021-08-10] MEDS ORDERED: LIDOCAINE PATCH REMOVAL MC SCH (22:00)
== END 2021-08-10 20:48 | disposition home or self-care (01) ==
LOC: JERFT 17:37
DX: M54.50 Low back pain, unspecified (principal)
CPT/HCPCS: 99283-25

== ENCOUNTER 2022-02-21 16:03 | Emergency (ER) | payer BC, OTHER ==
[2022-02-21 16:53] VITALS: BP 149/84; PULSE 50; RESP 6; TEMP 98.2; BMI 32.4
[2022-02-21] MEDS ORDERED: KETOROLAC TROMETHAMINE 30 MG/1 ML VIAL IM ONE (17:23)
[2022-02-21] MEDS ORDERED: LIDOCAINE 5% TOPICAL PATCH TP ONE (17:24)
[2022-02-21] MEDS ORDERED: LIDOCAINE 5% TOPICAL PATCH ONE (17:37)
[2022-02-21] MEDS ORDERED: KETOROLAC TROMETHAMINE 30 MG/1 ML VIAL ONE (17:38)
[2022-02-21] MEDS ORDERED: LIDOCAINE PATCH REMOVAL MC SCH (22:00)
== END 2022-02-21 19:01 | disposition home or self-care (01) ==
LOC: JERFT 16:03
PROC: 3E0233Z Introduction of Anti-inflammatory into Muscle, Percutaneous Approach (ICD-10-PCS; principal; 2022-02-21)
DX: M25.511 Pain in right shoulder (principal)
CPT/HCPCS: 73030-TC-RT-FY; 99284-25

== ENCOUNTER 2022-06-21 13:26 | Inpatient (IN) | payer BC, OTHER ==
[2022-06-21 14:02] VITALS: BMI 32.8
[2022-06-21] MEDS ORDERED: SODIUM CHLORIDE 0.9% 500 ML INFUS.BAG IV ONE (15:21)
[2022-06-21] MEDS ORDERED: LIDOCAINE 5% TOPICAL PATCH TP ONE (15:30)
[2022-06-21] MEDS ORDERED: ACETAMINOPHEN 325 MG TABLET (FP) PO ONE (15:36)
[2022-06-21] MEDS ORDERED: ACETAMINOPHEN 325 MG TABLET (FP) ONE ×2 (16:37→22:13)
[2022-06-21 17:33] LABS: BASO % 0.6 % (0-2.0); EOS % 0.2 % (0-4.5); HEMATOCRIT 37.9 % (32.4-45.2); HEMOGLOBIN 12.2 GM/dL (10.7-15.3); LYMPH % 7.9 % (8-40); MCH 26.5 pg (25.7-33.7); MCHC 32.2 g/dl (32.0-36.0); MEAN CELL VOLUME 82.2 fl (80-96); NEUT % 85.3 % (42.8-82.8); PLATELET COUNT 332 10^3/uL (134-434); RBC 4.61 M/mm3 (3.60-5.2); RDW 15.8 % (11.6-15.6); WHITE BLOOD COUNT 4.4 K/mm3 (4.0-10.0)
[2022-06-21 17:49] LABS: CHLORIDE 98 mmol/L (98-107); SODIUM 137 mmol/L (136-145)
[2022-06-21 17:51] LABS: ALBUMIN 3.8 g/dl (3.4-5.0); BLOOD UREA NITROGEN 17.4 mg/dL (7-18); CALCIUM 9.1 mg/dL (8.5-10.1); CO2 32 mmol/L (21-32); GLUCOSE,RANDOM 81 mg/dL (74-106)
[2022-06-21 17:54] LABS: CREATININE 0.8 mg/dL (0.55-1.3); SGOT/AST 21 U/L (15-37); SGPT/ALT 25 U/L (13-61)
[2022-06-21 17:56] LABS: BILIRUBIN,TOTAL 0.7 mg/dL (0.2-1); TOT PROT 7.6 g/dl (6.4-8.2)
[2022-06-21 17:57] LABS: ALK PHOS 145 U/L (45-117); ANION GAP 6 MMOL/L (8-16)
[2022-06-21] MEDS ORDERED: POTASSIUM CHLORIDE ORAL LIQUID 20 MEQ/15 ML PO ONE (18:05)
[2022-06-21] MEDS: KCL 10 MEQ IVPB 10 MEQ/100 ML INFUS.BAG IVPB SCH ×3 (18:16→21:30)
[2022-06-21] MEDS ORDERED: POTASSIUM CHLORIDE TABS 20 MEQ TABLET.ER (FP) PO ONE ×2 (18:27→18:49)
[2022-06-21] MEDS ORDERED: KCL 10 MEQ IVPB 10 MEQ/100 ML INFUS.BAG IVPB ONE ×2 (18:28→22:27)
[2022-06-21] MEDS ORDERED: POTASSIUM CHLORIDE ORAL LIQUID 20 MEQ/15 ML ONE (18:29)
[2022-06-21 18:56] LABS: MAGNESIUM 1.3 mg/dL (1.8-2.4)
[2022-06-21] MEDS: LIDOCAINE PATCH REMOVAL MC SCH (21:25)
[2022-06-21] MEDS ORDERED: LIDOCAINE 5% TOPICAL PATCH ONE (21:26)
[2022-06-21] MEDS: ACETAMINOPHEN 325 MG TABLET (FP) PO PRN (21:30)
[2022-06-22] MEDS: KCL 10 MEQ IVPB 10 MEQ/100 ML INFUS.BAG IVPB SCH (02:22)
[2022-06-22] MEDS ORDERED: traMADol HCL 50 MG TABLET ONE ×2 (02:26→20:58)
[2022-06-22] MEDS: traMADol HCL 50 MG TABLET PO PRN ×2 (02:26→21:04)
[2022-06-22 09:23] LABS: BASO % 0.8 % (0-2.0); HEMATOCRIT 32.7 % (32.4-45.2); HEMOGLOBIN 10.5 GM/dL (10.7-15.3); LYMPH % 22.6 % (8-40); MCH 26.3 pg (25.7-33.7); MEAN CELL VOLUME 82.1 fl (80-96); MEAN PLT VOLUME 8.1 fl (7.5-11.1); MONO % 13.5 % (3.8-10.2); NEUT % 61.1 % (42.8-82.8); PLATELET COUNT 270 10^3/uL (134-434); RBC 3.99 M/mm3 (3.60-5.2); RDW 15.7 % (11.6-15.6); WHITE BLOOD COUNT 2.7 K/mm3 (4.0-10.0)
[2022-06-22 09:36] LABS: CHLORIDE 102 mmol/L (98-107); SODIUM 140 mmol/L (136-145)
[2022-06-22 09:44] LABS: BLOOD UREA NITROGEN 17.2 mg/dL (7-18); CO2 29 mmol/L (21-32); GLUCOSE,RANDOM 89 mg/dL (74-106); MAGNESIUM 1.3 mg/dL (1.8-2.4)
[2022-06-22] MEDS ORDERED: HEPARIN NA (PORCINE) 5,000 UNITS/ML 1ML VIAL ONE (09:44)
[2022-06-22 09:45] LABS: CALCIUM 8.3 mg/dL (8.5-10.1); HDL CHOLESTEROL 64 mg/dL (40-60)
[2022-06-22 09:47] LABS: CREATININE 0.8 mg/dL (0.55-1.3)
[2022-06-22 09:48] LABS: ALK PHOS 123 U/L (45-117); CHOLESTEROL 201 mg/dL (50-200); SGOT/AST 22 U/L (15-37); TRIGLYCERIDES 111 mg/dL (0-150)
[2022-06-22 09:49] LABS: BILIRUBIN,TOTAL 0.5 mg/dL (0.2-1); LDL CHOLESTEROL (ONLY SJRH) 119 mg/dL (5-100); TOT PROT 6.3 g/dl (6.4-8.2)
[2022-06-22 09:50] LABS: SGPT/ALT 25 U/L (13-61)
[2022-06-22 10:04] LABS: ANION GAP 9 MMOL/L (8-16)
[2022-06-22] MEDS ORDERED: MAGNESIUM 2GM/50ML STERILE WATER IVPB IVPB ONE (10:30)
[2022-06-22] MEDS ORDERED: IBUPROFEN 800 MG/8 ML IJ IVPB ONE ×2 (10:30→11:33)
[2022-06-22] MEDS: HEPARIN NA (PORCINE) 5,000 UNITS/ML 1ML VIAL SQ SCH ×2 (11:29→23:43)
[2022-06-22] MEDS ORDERED: MAGNESIUM SULFATE IN WATER 2 GM/50 ML IVPB IVPB ONE (11:34)
[2022-06-22] MEDS ORDERED: POTASSIUM CHLORIDE ORAL LIQUID 20 MEQ/15 ML ONE ×3 (11:34→20:58)
[2022-06-22] MEDS: SODIUM CHLORIDE 0.9%/KCL 20 MEQ/1,000 ML INFUS.BAG IV SCH (11:35)
[2022-06-22] MEDS: POTASSIUM CHLORIDE ORAL LIQUID 20 MEQ/15 ML PO SCH ×2 (11:35→17:48)
[2022-06-22] MEDS ORDERED: NAPROXEN 500 MG TABLET ONE ×2 (13:43→17:46)
[2022-06-22] MEDS: NAPROXEN 500 MG TABLET PO PRN ×2 (13:44→17:49)
[2022-06-22] MEDS ORDERED: ACETAMINOPHEN 325 MG TABLET (FP) ONE (14:47)
[2022-06-22] MEDS: ACETAMINOPHEN 325 MG TABLET (FP) PO PRN (14:57)
[2022-06-22] MEDS ORDERED: POTASSIUM CHLORIDE ORAL LIQUID 20 MEQ/15 ML PO ONE ×2 (15:37→18:38)
[2022-06-22] MEDS ORDERED: ACETAMINOPHEN INJECTION 100 ML IVPB ONE (23:33)
[2022-06-22] MEDS ORDERED: ONDANSETRON 4 MG/2 ML VIAL ONE (23:33)
[2022-06-22] MEDS ORDERED: TRIMETHOBENZAMIDE HCL 200MG/2ML INJ IM PRN (23:43)
[2022-06-22] MEDS: LIDOCAINE PATCH REMOVAL MC SCH (23:44)
[2022-06-22] MEDS: ACETAMINOPHEN 1000 MG/100 ML BAG IVPB PRN (23:45)
[2022-06-23] MEDS ORDERED: ONDANSETRON 4 MG/2 ML VIAL IVPUSH ONE (00:42)
[2022-06-23] MEDS: SODIUM CHLORIDE 0.9%/KCL 20 MEQ/1,000 ML INFUS.BAG IV SCH ×2 (05:38→10:02)
[2022-06-23] MEDS ORDERED: traMADol HCL 50 MG TABLET ONE ×2 (09:37→15:00)
[2022-06-23] MEDS: HEPARIN NA (PORCINE) 5,000 UNITS/ML 1ML VIAL SQ SCH (09:50)
[2022-06-23] MEDS: traMADol HCL 50 MG TABLET PO PRN ×2 (09:50→15:05)
[2022-06-23] MEDS ORDERED: TRIAMTERENE AND HCTZ - 37.5 MG/25 MG CAPSULE PO SCH (10:30)
[2022-06-23] MEDS ORDERED: POTASSIUM CHLORIDE TABS 20 MEQ TABLET.ER (FP) PO SCH (11:15)
[2022-06-23] MEDS ORDERED: ACETAMINOPHEN INJECTION 100 ML IVPB ONE (11:48)
[2022-06-23] MEDS ORDERED: POTASSIUM CHLORIDE TABS 20 MEQ TABLET.ER (FP) PO ONE (11:49)
[2022-06-23] MEDS: ACETAMINOPHEN 1000 MG/100 ML BAG IVPB PRN (12:00)
[2022-06-23 12:46] LABS: BLOOD UREA NITROGEN 9.8 mg/dL (7-18); CALCIUM 8.7 mg/dL (8.5-10.1)
[2022-06-23 12:50] LABS: CREATININE 0.7 mg/dL (0.55-1.3)
[2022-06-23] MEDS ORDERED: NAPROXEN 500 MG TABLET ONE (18:29)
[2022-06-23] MEDS ORDERED: ACETAMINOPHEN 325 MG TABLET (FP) ONE (18:29)
[2022-06-23 19:08] VITALS: BP 144/76; PULSE 65; RESP 16; TEMP 98.7
== END 2022-06-23 18:40 | disposition home or self-care (01) | DRG 641 ==
LOC: JER 13:26 → JERBED 20:05
PROVIDERS: ADMIT Internal Medicine; ATTEND Internal Medicine
DX: E87.6 Hypokalemia (principal); M25.511 Pain in right shoulder; I10 Essential (primary) hypertension; E78.5 Hyperlipidemia, unspecified; G89.29 Other chronic pain; R20.0 Anesthesia of skin; R07.89 Other chest pain
CPT/HCPCS: 0241U-QW; 36415; 71046-TC-FY; 73030-TC-RT-FY; 73218-TC-RT; 80048; 80053; 80061; 83735; 84443; 84484; 85025; 93005; 93010; 99285-25; J1644

== ENCOUNTER 2024-01-24 00:40 | Observation (INO) | payer BC, OTHER ==
[2024-01-24 01:46] LABS: BASO % 1.1 % (0-2.0); EOS % 2.2 % (0-4.5); HEMATOCRIT 37.7 % (32.4-45.2); HEMOGLOBIN 12.3 GM/dL (10.7-15.3); LYMPH % 22.2 % (8-40); MCH 26.5 pg (25.7-33.7); MCHC 32.6 g/dl (32.0-36.0); MEAN CELL VOLUME 81.3 fl (80-96); MONO % 12.7 % (3.8-10.2); NEUT % 61.8 % (42.8-82.8); PLATELET COUNT 288 10^3/uL (134-434); RBC 4.64 M/mm3 (3.60-5.2); RDW 14.2 % (11.6-15.6); WHITE BLOOD COUNT 5.1 K/mm3 (4.0-10.0)
[2024-01-24 02:12] LABS: POTASSIUM 3.1 mmol/L (3.5-5.1)
[2024-01-24 02:14] LABS: ALBUMIN 3.9 g/dl (3.4-5.0); CALCIUM 9.7 mg/dL (8.5-10.1); MAGNESIUM 1.6 mg/dL (1.8-2.4)
[2024-01-24 02:18] LABS: BILIRUBIN,TOTAL 0.5 mg/dL (0.2-1); CREATININE 1.1 mg/dL (0.55-1.3); TOT PROT 8.2 g/dl (6.4-8.2)
[2024-01-24] MEDS: KCL 10 MEQ IVPB 10 MEQ/100 ML INFUS.BAG IVPB SCH (03:04)
[2024-01-24] MEDS ORDERED: POTASSIUM CHLORIDE ORAL LIQUID 20 MEQ/15 ML ONE (03:35)
[2024-01-24] MEDS ORDERED: MAGNESIUM SULFATE IN WATER 2 GM/50 ML IVPB IVPB ONE (03:37)
[2024-01-24] MEDS: MAGNESIUM SULFATE IN WATER 2 GM/50 ML IVPB IVPB ONE (03:47)
[2024-01-24] MEDS: POTASSIUM CHLORIDE ORAL LIQUID 20 MEQ/15 ML PO ONE ×2 (03:47→04:23)
[2024-01-24] MEDS ORDERED: ASPIRIN 325 MG TABLET ONE (05:51)
[2024-01-24] MEDS: ASPIRIN 325 MG TABLET PO ONE (05:54)
[2024-01-24] MEDS: ENOXAPARIN NA (PORCINE) 40 MG/0.4 ML DISP.SYRIN SQ SCH (10:49)
[2024-01-24 11:35] LABS: HEMATOCRIT 38.7 % (32.4-45.2); HEMOGLOBIN 12.7 GM/dL (10.7-15.3); MCH 26.7 pg (25.7-33.7); MCHC 32.7 g/dl (32.0-36.0); MEAN CELL VOLUME 81.7 fl (80-96); MEAN PLT VOLUME 8.7 fl (7.5-11.1); PLATELET COUNT 286 10^3/uL (134-434); RBC 4.74 M/mm3 (3.60-5.2); RDW 14.2 % (11.6-15.6); WHITE BLOOD COUNT 6.8 K/mm3 (4.0-10.0)
[2024-01-24 11:42] LABS: POTASSIUM 4.3 mmol/L (3.5-5.1)
[2024-01-24 11:44] LABS: BLOOD UREA NITROGEN 14.9 mg/dL (7-18); CALCIUM 9.9 mg/dL (8.5-10.1); MAGNESIUM 2.2 mg/dL (1.8-2.4)
[2024-01-24 11:48] LABS: PHOSPHOROUS 2.5 mg/dL (2.5-4.9)
[2024-01-24 12:27] LABS: CHOLESTEROL 174 mg/dL (50-200); HDL CHOLESTEROL 74 mg/dL (40-60); LDL CHOLESTEROL (ONLY SJRH) 85 mg/dL (5-100)
[2024-01-24 13:27] VITALS: BMI 35.5
[2024-01-24] MEDS: ATORVASTATIN CA 20 MG TABLET (FP) PO SCH (14:12)
[2024-01-24 21:46] LABS: HEMATOCRIT 38.1 % (32.4-45.2); HEMOGLOBIN 12.6 GM/dL (10.7-15.3); MCH 26.4 pg (25.7-33.7); MEAN PLT VOLUME 8.1 fl (7.5-11.1); PLATELET COUNT 300 10^3/uL (134-434); RBC 4.76 M/mm3 (3.60-5.2); RDW 14.3 % (11.6-15.6); WHITE BLOOD COUNT 5.1 K/mm3 (4.0-10.0)
[2024-01-24 22:10] LABS: POTASSIUM 3.4 mmol/L (3.5-5.1)
[2024-01-24 22:13] LABS: CALCIUM 9.7 mg/dL (8.5-10.1); MAGNESIUM 1.7 mg/dL (1.8-2.4)
[2024-01-24 22:15] LABS: CREATININE 1.1 mg/dL (0.55-1.3); PHOSPHOROUS 3.3 mg/dL (2.5-4.9)
[2024-01-25 14:45] VITALS: RESP 18
[2024-01-25 18:55] VITALS: BP 132/71; PULSE 64; TEMP 98.1
== END 2024-01-25 18:10 | disposition home or self-care (01) ==
LOC: JER 00:40 → JERBED 04:27 → J4W 09:22
PROVIDERS: ADMIT Internal Medicine; ATTEND Internal Medicine
PROC: 3E033GC Introduction of Other Therapeutic Substance into Peripheral Vein, Percutaneous Approach (ICD-10-PCS; principal; 2024-01-24)
DX: I10 Essential (primary) hypertension (principal); R79.89 Other specified abnormal findings of blood chemistry; E87.6 Hypokalemia; E83.42 Hypomagnesemia; Z90.79 Acquired absence of other genital organ(s); Z87.891 Personal history of nicotine dependence
CPT/HCPCS: 36415; 71045-TC-FY; 71275-TC; 80048; 80053; 80061; 82550; 82553; 83036; 83735; 84100; 84443; 84484; 85025; 85027; 85379; 93005; 93010; 93306-TC; 99285-25; G0378; Q9967

== ENCOUNTER 2024-01-30 02:04 | Emergency (ER) | payer BC, OTHER ==
[2024-01-30 02:09] VITALS: BP 148/89; PULSE 95; RESP 18; TEMP 97.6; BMI 35.0
== END 2024-01-30 03:39 | disposition home or self-care (01) ==
LOC: JER 02:04
DX: I10 Essential (primary) hypertension (principal)
CPT/HCPCS: 99283-25

== ENCOUNTER 2024-03-03 19:49 | Emergency (ER) | payer BC, OTHER ==
[2024-03-03 19:52] VITALS: BP 170/86; PULSE 98; RESP 18; TEMP 98.4; BMI 34.0
[2024-03-03 21:01] LABS: BASO % 1.5 % (0-2.0); EOS % 2.9 % (0-4.5); HEMATOCRIT 36.7 % (32.4-45.2); LYMPH % 20.8 % (8-40); MCH 26.4 pg (25.7-33.7); MCHC 32.7 g/dl (32.0-36.0); MEAN CELL VOLUME 80.6 fl (80-96); MEAN PLT VOLUME 8.3 fl (7.5-11.1); MONO % 12.3 % (3.8-10.2); NEUT % 62.5 % (42.8-82.8); PLATELET COUNT 296 10^3/uL (134-434); RBC 4.55 M/mm3 (3.60-5.2); RDW 14.5 % (11.6-15.6); WHITE BLOOD COUNT 4.8 K/mm3 (4.0-10.0)
[2024-03-03 21:17] LABS: POTASSIUM 3.9 mmol/L (3.5-5.1)
[2024-03-03 21:19] LABS: ALBUMIN 3.8 g/dl (3.4-5.0); CALCIUM 9.7 mg/dL (8.5-10.1)
[2024-03-03 21:20] LABS: BLOOD UREA NITROGEN 17.3 mg/dL (7-18); MAGNESIUM 1.6 mg/dL (1.8-2.4)
[2024-03-03 21:23] LABS: CREATININE 1.4 mg/dL (0.55-1.3)
[2024-03-03 21:24] LABS: BILIRUBIN,TOTAL 0.5 mg/dL (0.2-1)
[2024-03-03 22:51] LABS: HIV INTERPRETATION NEGATIVE (NEGATIVE)
== END 2024-03-03 22:03 | disposition home or self-care (01) ==
LOC: JER 19:49
DX: R14.0 Abdominal distension (gaseous) (principal)
CPT/HCPCS: 36415; 74019-TC-FY; 80053; 83690; 83735; 85025; 86803; 87389; 93005; 93010; 99285-25